=== PATIENT | male | born 1990 | race Caucasian/White ===

== ENCOUNTER 2019-06-13 16:20 | Emergency (ER) | payer OTHER ==
[~2019-06-13] VITALS: Ht 180.3 cm; Wt 72.6 kg
[~2019-06-13 16:20] MED LIST: ACYCLOVIR 800800 MG PO; ATIVAN1 MG PO; BACTRIM DS TAB1 EACH PO; NOHOMEMEDICATIONS; NORCO 5-325 TA1 EACH PO; TOBRAMYCIN SULFA5 ML OPHTHALMIC; XANAX 0.5 MG0.5 M1 PO; XANAX 0.5 MG0.5 MG PO
[2019-06-13] MEDS ORDERED: METHADONE10 MG/1 M2 PO (16:38)
[2019-06-13] MEDS ORDERED: ZANAFLEX4 MG PO (17:00)
[2019-06-13] MEDS ORDERED: NABUMETONE 750750 M1 PO (17:00)
[2019-06-13 18:25] VITALS: BP 113/53
== END 2019-06-13 18:26 | disposition home or self-care (01) ==
LOC: M.ERS 16:20
DX: S16.1XXA Strain of muscle, fascia and tendon at neck level, initial encounter (principal); S29.012A Strain of muscle and tendon of back wall of thorax, initial encounter; F41.9 Anxiety disorder, unspecified; F17.210 Nicotine dependence, cigarettes, uncomplicated; V89.2XXA Person injured in unspecified motor-vehicle accident, traffic, initial encounter; Y93.89 Activity, other specified; Y92.89 Other specified places as the place of occurrence of the external cause; Y99.8 Other external cause status

== ENCOUNTER 2019-06-23 04:51 | Emergency (ER) | payer OTHER ==
[~2019-06-23] VITALS: Ht 180.3 cm; Wt 74.8 kg
[~2019-06-23 04:51] MED LIST changes: +METHADONE10 MG/1 M2 PO; +NABUMETONE 750750 M1 PO; +ZANAFLEX4 MG PO
[2019-06-23 04:55] VITALS: BP 149/73
[2019-06-23] MEDS ORDERED: HYDROCODON-ACE1 EAC8 PO (05:14)
[2019-06-23] MEDS ORDERED: PENICILLIN VK500 MG PO (05:14)
[2019-06-23] MEDS ORDERED: PERIDEX 0.12%473 M1 SWISH&SPIT (05:14)
== END 2019-06-23 05:26 | disposition home or self-care (01) ==
LOC: M.ERS 04:51
DX: K02.9 Dental caries, unspecified (principal); F41.9 Anxiety disorder, unspecified; F17.210 Nicotine dependence, cigarettes, uncomplicated

== ENCOUNTER 2019-08-13 12:51 | Emergency (ER) | payer OTHER ==
[~2019-08-13] VITALS: Ht 180.3 cm; Wt 74.8 kg
[~2019-08-13 12:51] MED LIST changes: +HYDROCODON-ACE1 EAC8 PO; +PENICILLIN VK500 MG PO; +PERIDEX 0.12%473 M1 SWISH&SPIT
[2019-08-13] MEDS ORDERED: NABUMETONE 750750 M1 PO (14:24)
[2019-08-13] MEDS ORDERED: ZANAFLEX4 MG PO (14:24)
[2019-08-13 14:48] VITALS: BP 109/67
== END 2019-08-13 14:52 | disposition home or self-care (01) ==
LOC: M.ERS 12:51
DX: S29.012A Strain of muscle and tendon of back wall of thorax, initial encounter (principal); F41.9 Anxiety disorder, unspecified; F17.210 Nicotine dependence, cigarettes, uncomplicated; V89.2XXA Person injured in unspecified motor-vehicle accident, traffic, initial encounter; Y92.89 Other specified places as the place of occurrence of the external cause; Y93.89 Activity, other specified; Y99.8 Other external cause status

== ENCOUNTER 2019-11-12 22:34 | Emergency (ER) | payer OTHER ==
[~2019-11-12] VITALS: Ht 180.3 cm; Wt 74.8 kg
[2019-11-12] MEDS ORDERED: IBUPROFEN 800800 MG PO (23:17)
[2019-11-12] MEDS ORDERED: HYDROCODON-ACE1 EAC7 PO (23:17)
[2019-11-12] MEDS ORDERED: PENICILLIN VK500 M1 PO (23:17)
[2019-11-12] MEDS ORDERED: PERIDEX 0.12%473 M1 SWISH&SPIT (23:17)
[2019-11-12 23:27] VITALS: BP 133/93
== END 2019-11-12 23:28 | disposition home or self-care (01) ==
LOC: M.ERS 22:34
DX: K02.9 Dental caries, unspecified (principal); F41.9 Anxiety disorder, unspecified; F17.210 Nicotine dependence, cigarettes, uncomplicated; Z79.899 Other long term (current) drug therapy

== ENCOUNTER 2020-02-23 09:52 | Emergency (ER) | payer OTHER ==
[~2020-02-23] VITALS: Ht 175.3 cm; Wt 68.0 kg
[~2020-02-23 09:52] MED LIST changes: +HYDROCODON-ACE1 EAC7 PO; +IBUPROFEN 800800 MG PO; +PENICILLIN VK500 M1 PO
[2020-02-23] MEDS ORDERED: METHADONE10 MG/1 M2 PO (09:58)
[2020-02-23] MEDS ORDERED: AMOXICILLIN 50500 MG PO (10:22)
[2020-02-23] MEDS ORDERED: TRAMADOL 50 MG50 MG PO (10:22)
[2020-02-23 10:23] VITALS: BP 134/83
== END 2020-02-23 10:26 | disposition home or self-care (01) ==
LOC: M.ERS 09:52
DX: K02.9 Dental caries, unspecified (principal); F17.210 Nicotine dependence, cigarettes, uncomplicated

== ENCOUNTER 2020-05-06 23:53 | Emergency (ER) | payer OTHER ==
[~2020-05-06] VITALS: Ht 180.3 cm; Wt 74.8 kg
[~2020-05-06 23:53] MED LIST changes: +AMOXICILLIN 50500 MG PO; +TRAMADOL 50 MG50 MG PO
[2020-05-07] MEDS ORDERED: TRAMADOL 50 MG50 MG PO (00:16)
[2020-05-07] MEDS ORDERED: AMOXICILLIN 50500 MG PO (00:16)
[2020-05-07 00:25] VITALS: BP 138/74
== END 2020-05-07 00:25 | disposition home or self-care (01) ==
LOC: M.ERS 23:53
DX: K02.9 Dental caries, unspecified (principal); F17.210 Nicotine dependence, cigarettes, uncomplicated